=== PATIENT | male | born 1965 | race Caucasian/White ===

== ENCOUNTER 2020-03-13 14:54 | Emergency (ER) | payer OTHER, SELFPAY ==
[2020-03-13 14:58] VITALS: BP 144/90; PULSE 90; RESP 14; TEMP 36.9; O2SAT 99; BMI 27.8
[2020-03-13] MEDS: ALBUTEROL HFA PREPACK 1 BOX MISC (15:15)
--- NOTE | 2020-03-13 15:18 | ED_ITS ---
HPI - SOB/Dyspnea General Chief Complaint: Shortness of Breath/Dyspnea Stated Complaint: trouble breathing Time Seen by Provider: 03/13/20 15:14 Source: patient and family Mode of arrival: Ambulatory Limitations: no limitations History of Present Illness HPI Narrative: Patient is a 54-year-old male who presents with ongoing cough since about October or November he feels like it has progressively gotten worse and feels like today he cannot take a deep breath. He denies any fever he sometimes has some chest discomfort. Every time he tries to take a deep breath he starts coughing. He actually had a COVID-19 test 2 days ago they do not yet have the result. He denies any sore throat body aches fever or chills. He denies any orthopnea who is just worse with exertion. MD Complaint: shortness of breath, cough and pain with inspiration Related Data Allergies Allergy/AdvReac Type Severity Reaction Status Date / Time No Known Drug Allergies Allergy Verified 03/13/20 15:17 Review of Systems Review of Systems Narrative: GENERAL: Denies chills, fatigue, malaise, fever, sweats, travel HEENT: Denies sinus pain, ear pain, sore throat, difficulty swallowing, neck pain RESPIRATORY: Denies dyspnea, cough, wheezing, hemoptysis, sputum. CARDIOVASCULAR: Denies chest pain, palpitations, orthopnea, edema GASTROINTESTINAL: Denies nausea, vomiting, abdominal pain, diarrhea, constipation, melena. : Denies dysuria, frequency, incontinence, hematuria, urinary retention, flank pain. MUSCULOSKELETAL: Denies weakness, joint pain, or bony pain SKIN: No rash, no erythema, no pruritus NEUROLOGIC: Denies weakness, dizziness, headache, numbness, change in speech, confusion PSYCHIATRIC: No concerning psychosocial issues. 12 point review of systems is negative except for those stated above and HPI Patient History Medical History Patient denies medical problems (Acute) Social History Smoking Status: Former smoker Smoking Status: Former smoker alcohol intake frequency: 0-2 drinks per day Substance Use Type: does not use Exam Initial Vital Signs Initial Vital Signs: Vital Signs Temperature 98.4 F 03/13/20 14:58 Pulse Rate 90 03/13/20 14:58 Respiratory Rate 14 03/13/20 14:58 Blood Pressure 144/90 H 03/13/20 14:58 Pulse Oximetry 99 03/13/20 14:58 GENERAL: Well-appearing, well-nourished and in no acute distress. HEENT: Head atraumatic,EOMI, pupils reactive, face symmetric, moist mucous membranes CARDIOVASCULAR: Regular rate and rhythm without murmurs, rubs or gallops. RESPIRATORY: Breath sounds equal bilaterally, no wheezes rales or rhonchi. Speaks in full sentences without difficulty whenever he takes a deep breath he does have cough ABDOMEN: Soft, nontender. Normoactive bowel sounds all 4 quadrants. No guarding or rebound. EXTREMITIES: Normal range of motion, no clubbing or edema. Neurovascularly intact NEUROLOGICAL: Alert and oriented x4.Normal gait and speech. SKIN: Warm, dry, no laceration, no petechiae, no rashes or lesions. Scores HEART Score Heart Score history: Slightly Suspicious Heart Score EKG: Normal Heart Score Age: 45-64 years old Heart Score risk factors: No known risk factors Heart Score troponin: < or = to normal limit Heart Score Total: 1 Course Orders Ordered: ED Orders 03/13/20 14:58 EKG-12 Lead Routine 03/13/20 15:05 Complete Blood Count AUTO DIFF Stat Comprehensive Metabolic Panel Stat D Dimer Stat NT-proBNP (BNP-Adult 18+) Stat Procalcitonin Stat Troponin & CK Cardiac Panel Stat 03/13/20 15:17 Consult to Respiratory Therapy Evaluate & Treat XR chest 2V Stat Discontinued Medications Albuterol (Ventolin Hfa Prepack) 1 box MISC SEEINSTR ONE Stop: 03/13/20 15:12 Last Admin: 03/13/20 15:15 Dose: 1 box Documented by: BJ Vital Signs Vital signs: Vital Signs - 8 hr 03/13/20 14:58 03/13/20 15:21 03/13/20 15:33 Temperature 98.4 F Pulse Rate 90 86 85 Respiratory Rate 14 16 21 Blood Pressure 144/90 H Pulse Oximetry 99 96 94 03/13/20 16:00 03/13/20 16:36 Temperature Pulse Rate 94 H 78 Respiratory Rate 22 20 Blood Pressure 146/67 H Pulse Oximetry 93 97 MDM - SOB/Dyspnea Lab Data Attestation: I reviewed the patient's lab results. Result diagrams: 03/13/20 15:05 03/13/20 15:05 Labs: Lab Results 03/13/20 03/13/20 03/13/20 Range/Units 15:05 15:05 15:05 WBC 5.9 (4.5-11.0) X10^3/uL RBC 5.12 (4.5-5.9) X10^6/uL Hgb 15.9 (13.5-17.5) g/dL Hct 45.7 (41-53) % MCV 89.3 (80-100) fL MCH 31.0 (26-34) PG MCHC 34.8 (30-36) % RDW 13.3 (11.6-14.8) % Plt Count 164 (150-400) X10^3/uL Neut % (Auto) 59.6 (50-75) % Lymph % (Auto) 27.4 (25-40) % Cloud % (Auto) 9.9 (3-14) % Eos % (Auto) 2.1 (2-4) % Baso % (Auto) 1.0 (0-2) % Neut # (Auto) 3500 (0524-6721) /uL Lymph # (Auto) 1600 (4641-3489) /uL Cloud # (Auto) 600 (0-900) /uL Eos # (Auto) 100 (0-450) /uL Baso # (Auto) 100 (0-100) /uL D-Dimer < 200 (<230) ng/mL Sodium (137-145) mmol/L Potassium (3.4-5.1) mmol/L Chloride (98-107) mmol/L Carbon Dioxide (22-32) mmol/L BUN (9-20) mg/dL Creatinine (0.66-1.25) mg/dL Estimated GFR (>60) mL/min BUN/Creatinine Ratio (6-22) Glucose (70-100) mg/dL Calcium (8.4-10.2) mg/dL Total Bilirubin (0.2-1.3) mg/dL AST (17-59) IU/L ALT (<50) IU/L Alkaline Phosphatase (38-126) U/L Total Creatine Kinase (55-170) U/L CK-MB (CK-2) CK-MB (CK-2) Rel Index Troponin I (0.01-0.034) ng/mL NT-Pro-B Natriuret Pep 18 (<125) pg/mL Total Protein (6.3-8.2) g/dL Albumin (3.5-5.0) g/dL Globulin (1.7-4.1) g/dL Albumin/Globulin Ratio (1.0-2.8) Procalcitonin (<0.5) ng/mL 03/13/20 03/13/20 Range/Units 15:05 15:05 WBC (4.5-11.0) X10^3/uL RBC (4.5-5.9) X10^6/uL Hgb (13.5-17.5) g/dL Hct (41-53) % MCV (80-100) fL MCH (26-34) PG MCHC (30-36) % RDW (11.6-14.8) % Plt Count (150-400) X10^3/uL Neut % (Auto) (50-75) % Lymph % (Auto) (25-40) % Cloud % (Auto) (3-14) % Eos % (Auto) (2-4) % Baso % (Auto) (0-2) % Neut # (Auto) (7414-9689) /uL Lymph # (Auto) (0219-9185) /uL Cloud # (Auto) (0-900) /uL Eos # (Auto) (0-450) /uL Baso # (Auto) (0-100) /uL D-Dimer (<230) ng/mL Sodium 139 (137-145) mmol/L Potassium 4.6 (3.4-5.1) mmol/L Chloride 107 (98-107) mmol/L Carbon Dioxide 26 (22-32) mmol/L BUN 17 (9-20) mg/dL Creatinine 1.42 H (0.66-1.25) mg/dL Estimated GFR 51.8 L (>60) mL/min BUN/Creatinine Ratio 12.0 (6-22) Glucose 98 (70-100) mg/dL Calcium 9.1 (8.4-10.2) mg/dL Total Bilirubin 0.6 (0.2-1.3) mg/dL AST 46 (17-59) IU/L ALT 50 H (<50) IU/L Alkaline Phosphatase 61 (38-126) U/L Total Creatine Kinase 100 (55-170) U/L CK-MB (CK-2) TNP CK-MB (CK-2) Rel Index TNP Troponin I < 0.012 (0.01-0.034) ng/mL NT-Pro-B Natriuret Pep (<125) pg/mL Total Protein 7.3 (6.3-8.2) g/dL Albumin 4.4 (3.5-5.0) g/dL Globulin 2.9 (1.7-4.1) g/dL Albumin/Globulin Ratio 1.5 (1.0-2.8) Procalcitonin < 0.05 (<0.5) ng/mL Imaging Data Chest x-ray: Radiologist's Impression: PROCEDURE: XR CHEST 2V INDICATIONS: sob TECHNIQUE: 2 views of the chest were acquired. COMPARISON: None. FINDINGS: Surgical changes and devices: None. Lungs and pleura: Lungs are clear. No pleural effusions or pneumothorax. Mediastinum: Mediastinal contours are normal. Heart size is normal. Bones and chest wall: No suspicious bony abnormalities. Soft tissues appear unremarkable. IMPRESSION: No acute cardiopulmonary findings. Dictated by: Cande Christensen M.D. on 03/13/2020 at 15:06 Approved by: Cande Christensen M.D. on 03/13/2020 at 15:06 ECG Data Attestation: I personally reviewed and interpreted this ECG as follows: Prior ECG tracings: not available for review Interpretation: Normal sinus rhythm rate 75 p.r. interval 161 QRS [address] changes no T-wave inversions no priors to compare MDM Narrative Medical decision making narrative: Patient is has a COVID test is pending from outside facility. now at this time he is not hypoxic. He had mild improvement with albuterol. He overall does not appear septic. He has had chronic ongoing cough for a number of months. Symptoms correlate more with reactive airway disease. At this time recommend outpatient follow up. Discharge Plan Departure Patient Disposition: Home Clinical Impression: Mild reactive airways disease Qualifiers: Asthma persistence: unspecified Qualified Code(s): J45.909 - Unspecified asthma, uncomplicated Discharge Date/Time: 03/13/20 16:38 Instructions: DI for Reactive Airway Disease-Adult Activity Restrictions/Additional Instructions: *You have been diagnosed with reactive airway *What to do: At this time wait for your [place] id results self quarantine and see instructions below. Your kidney function should be monitored is noted to be slightly elevated *Continue to take medications as directed Albuterol inhaler with spacer 1-2 puffs every 4 hours only if needed for difficulty breathing *Follow up with your primary care provider in 2-3 days *Return to ER if you should have increasing shortness of breath chest pain [or] any new, worsening or concerning symptoms Referrals: Rommel Coleman MD [Primary Care Provider] -
[2020-03-13 15:21] VITALS: PULSE 86; RESP 16; O2SAT 96
[2020-03-13 15:31] LABS: Add Manual Diff / Slide Review NO; Basophils Absolute Auto 100 /uL (0-100); Eosinophils Absolute Auto 100 /uL (0-450); Eosinophils Percent Auto 2.1 % (2-4); Hematocrit 45.7 % (41-53); Hemoglobin 15.9 g/dL (13.5-17.5); Lymphocytes Absolute Auto 1600 /uL (1100-4500); Lymphocytes Percent Auto 27.4 % (25-40); Mean Corpuscular HGB Conc 34.8 % (30-36); Mean Corpuscular Volume 89.3 fL (80-100); Monocytes Absolute Auto 600 /uL (0-900); Monocytes Percent Auto 9.9 % (3-14); Neutrophils Absolute Auto 3500 /uL (1500-7000); Neutrophils Percent Auto 59.6 % (50-75); Platelet Count 164 X10^3/uL (150-400); Red Blood Cell Count 5.12 X10^6/uL (4.5-5.9); Red Cell Distribution Width 13.3 % (11.6-14.8); White Blood Cell Count 5.9 X10^3/uL (4.5-11.0)
[2020-03-13 15:33] VITALS: PULSE 85; RESP 21; O2SAT 94
[2020-03-13 15:44] LABS: Alanine Aminotransferase 50 IU/L (<50); Albumin 4.4 g/dL (3.5-5.0); Albumin Globulin Ratio 1.5 (1.0-2.8); Alkaline Phosphatase 61 U/L (38-126); Aspartate Aminotransferase 46 IU/L (17-59); Bilirubin Total 0.6 mg/dL (0.2-1.3); Blood Urea Nitrogen 17 mg/dL (9-20); Calcium 9.1 mg/dL (8.4-10.2); Carbon Dioxide 26 mmol/L (22-32); Chloride 107 mmol/L (98-107); Creatine Kinase 100 U/L (55-170); Estimated Glomerular Filt Rate 51.8 mL/min (>60); Globulin 2.9 g/dL (1.7-4.1); Glucose 98 mg/dL (70-100); HEMOLYSIS 20 (0-50); Potassium 4.6 mmol/L (3.4-5.1); Sodium 139 mmol/L (137-145); Total Protein 7.3 g/dL (6.3-8.2)
[2020-03-13 15:45] LABS: D Dimer < 200 ng/mL (<230)
[2020-03-13 15:53] LABS: NT-proBNP (BNP-Adult 18+) 18 pg/mL (<125)
[2020-03-13 15:55] LABS: Troponin I < 0.012 ng/mL (0.01-0.034)
[2020-03-13 16:00] VITALS: PULSE 94; RESP 22; O2SAT 93
[2020-03-13 16:17] LABS: Procalcitonin < 0.05 ng/mL (<0.5)
[2020-03-13 16:36] VITALS: BP 146/67; PULSE 78; RESP 20; O2SAT 97
== END 2020-03-13 16:38 | disposition home or self-care (01) ==
PROVIDERS: Emergency Provider Emergency Medicine; PCP General Practice
DX: J45.909 Unspecified asthma, uncomplicated (principal); R05 Cough
CPT/HCPCS: 36415; 71046; 80053; 82550; 83880; 84145; 84484; 85025; 85379; 93005; 94640; 99283; 99284

== ENCOUNTER → 2020-09-21 08:30 | Outpatient (CLI) | payer OTHER, SELFPAY ==
[2020-09-21 09:13] LABS: COVID19 -Nasal RAPID Negative (Negative)
== END ==
PROVIDERS: PCP Family Medicine; Referring Provider Internal Medicine; Visit Provider Internal Medicine
DX: Z20.822 Contact with and (suspected) exposure to COVID-19 (principal)
CPT/HCPCS: 87635; C9803

== ENCOUNTER → 2020-09-22 10:44 | Outpatient (CLI) | payer OTHER, SELFPAY ==
--- NOTE | 2020-10-05 10:04 | PM.PFT.1 ---
Pulmonary Function Test Referral & Results Date Patient Seen: 09/22/20 Requesting provider: Juan Jose Hunt Results: The spirometry demonstrates an FVC of 5.46 L which is 107% of predicted. The FEV1 was measured at 4.12 L which is 106% of predicted. The FEV1/FVC ratio was 75 which is 99% of predicted. Following the administration of bronchodilator there was no appreciable change to above normal numbers. Interpretation: Patient's forced spirometry was entirely normal
== END ==
PROVIDERS: PCP Family Medicine; Referring Provider Family Medicine; Visit Provider Family Medicine
DX: J45.909 Unspecified asthma, uncomplicated (principal); J30.9 Allergic rhinitis, unspecified
CPT/HCPCS: 94060

== ENCOUNTER → 2022-12-12 11:57 | Outpatient (CLI) | payer OTHER, SELFPAY ==
--- NOTE | 2022-12-12 11:59 | DI.RAD.S_ITS ---
PROCEDURE: XR CHEST 2V INDICATIONS: Cough TECHNIQUE: 2 views of the chest were acquired. COMPARISON: [facility], CR, XR CHEST 2V, 03/13/2020, 15:43. FINDINGS: Surgical changes and devices: None. Lungs and pleura: Increased bronchovascular markings in bilateral hilar region are seen with mild bronchial wall thickening. No definite focal infiltrate. No pleural effusions or pneumothorax. Mediastinum: Mediastinal contours are normal. Heart size is normal. Bones and chest wall: No suspicious bony abnormalities. Soft tissues appear unremarkable. IMPRESSION: Suggestion of mild reactive airway disease. No definite focal infiltrate. No pleural effusion or pneumothorax. Dictated by: Rj Garrett M.D. on 12/12/2022 at 14:31 Approved by: Rj Garrett M.D. on 12/12/2022 at 14:41
[2022-12-12 14:03] LABS: Monotest Negative (Negative)
[2022-12-12 14:30] LABS: COVID-19 CEPHEID 4-PLEX PCR Negative (Negative); Influenza A - CEPHEID Flu A NEGATIVE (NEGATIVE); Influenza B - CEPHEID Flu B NEGATIVE (NEGATIVE); Respiratory Syncytial Virus Negative (Negative)
== END ==
PROVIDERS: PCP Family Medicine; Referring Provider Nurse Practitioner Family; Visit Provider Nurse Practitioner Family
DX: R53.83 Other fatigue (principal); R05.9 Cough, unspecified; Z20.822 Contact with and (suspected) exposure to COVID-19
CPT/HCPCS: 0241U; 36415; 71046; 86318; 87070

== ENCOUNTER → 2024-05-21 13:26 | Outpatient (CLI) | payer OTHER, SELFPAY ==
--- NOTE | 2024-05-21 13:28 | DI.US.S_ITS ---
PROCEDURE: US EXTREMITY NONVASC UPPER LT INDICATIONS: localized swelling, mass and lump TECHNIQUE: Real-time scanning was performed of the left axilla, with image documentation. COMPARISON: None. FINDINGS: Focused ultrasound examination of left axilla at patient's reported area of palpable lump shows a 4.5 x 2.5 x 4.5 cm solid-appearing structure within subcutaneous soft tissue and is isoechoic to adjacent subcutaneous fat. No internal vascularity is seen. IMPRESSION: Finding likely represent 4.5 x 2.5 x 4.5 cm lipoma in left axilla. Clinical correlation and follow-up is recommended. Dictated by: Rj Garrett M.D. on 05/21/2024 at 14:07 Approved by: Rj Garrett M.D. on 05/21/2024 at 14:17
== END ==
PROVIDERS: PCP Nurse Practitioner Family; Referring Provider Nurse Practitioner Family; Visit Provider Nurse Practitioner Family
DX: R22.32 Localized swelling, mass and lump, left upper limb (principal)
CPT/HCPCS: 76882

== ENCOUNTER 2024-07-28 08:09 | Day surgery (SDC) | payer OTHER, SELFPAY ==
[2024-07-20 09:32] VITALS: BMI 29.1
--- NOTE | 2024-07-28 | PATH_ITS ---
[facility] Accession Number: [id number] No. of containers..01 Tissue . 01 Material submitted: . sinus, accessory - LEFT AXILLARY CONTENTS . 01 Diagnosis: LEFT AXILLARY CONTENTS, EXCISIONAL BIOPSIES: Fragments of mature adipose tissue, consistent with benign lipomas. Negative for atypia or malignancy. MRV 07/30/2024 1514 Local . 01 Electronically signed: . Trudy Sandoval MD, Pathologist NPI- [id number] . 01 Gross description: . Received in formalin with two patient identifiers and axillary contents, are two yellow lobulated soft tissue fragments. The first (2.2 x 1.6 x 1.5 cm) is inked blue while the second (1.5 x 1.3 x 0.8 cm) is inked green. Sectioning reveals a yellow, soft, unremarkable cut surface. Machine Ii Coremaker sections are submitted in A1-A2 (entire green fragment submitted). ([id number]) /MRV 07/29/2024 1330 Local . 01 Pathologist provided ICD-10: D17.9 . 01 CPT . 484769 Specimen Comment: A courtesy copy of this report has been sent to [phone] Performed at: [address] [facility] [address], [place], [place] [id number] MD Elvin Wagner MD Phone: [phone]
[2024-07-28] MEDS: LACTATED RINGERS 1,000 ML 100 ML IV (08:30)
[2024-07-28 08:44] VITALS: BP 116/78; RESP 72; TEMP 36.4; O2SAT 16; BMI 29.1
--- NOTE | 2024-07-28 08:52 | PM.PREOP ---
Pre-operative Note COVID-19 COVID-19 status: Not tested Interval Note History & Physical reviewed/Exam performed by Physician: Yes Changes to H&P: No ASA Class (for procedural sedation): II
--- NOTE | 2024-07-28 09:47 | SUR.OPER ---
Supine on padded OR bed, head on pillow, arms secured on padded arm boards at <90 degrees abduction, legs uncrossed, safety belt at thigh, tape over blanket over lower legs.
[2024-07-28] MEDS: BUPIVACAINE 0.5% W/ EPI (PF) 30 ML VIAL INJ (09:56)
--- NOTE | 2024-07-28 09:56 | P.OP_ITS ---
Operative Date/Time/Diagnoses Date of procedure: 07/28/24 Time of procedure: 09:56 Pre-op diagnosis: Left axillary fullness Post-op diagnosis: same Procedure & Clinicians Procedure: Left axillary excisional biopsy Same procedure as scheduled: Yes Surgeon: Blayne Su Creative Technologist: Andrew Santillan Anesthesia Type: General Operative Notes Procedure in detail: The patient is a 59-year-old man who presented with left axillary fullness, a sensation of a mass in the left axilla and an ultrasound suggesting lipoma in the area. He was consented for an excisional biopsy in the operating room. Patient was brought to the operating room and placed on the table in the supine position. Anesthesia was induced. His left arm was abducted on an armboard. The left axilla was prepped and draped in the usual fashion and a time-out was performed. Local was injected over the area of axillary fullness. A 7 cm transverse incision was created. We dissected down into the axillary contents. There was some thickened subcutaneous adipose tissue but no discrete mass. A finger was inserted in his to the axilla and no palpable lymph nodes or other abnormalities were identified. We did biopsy some of the thickened subcutaneous adipose tissue. We then used cautery for hemostasis. We injected additional local into the axilla. We then closed the skin incision in layers using multiple interrupted 3-0 Vicryl dermal sutures followed by a running 4-0 Monocryl subcuticular stitch. EBL: 5 mL graft Specimen: Left axillary contents Post-operative Condition: stable Disposition: PACU
[2024-07-28 10:05] VITALS: BP 106/72; PULSE 65; RESP 14; TEMP 36.5; O2SAT 95
[2024-07-28 10:10] VITALS: BP 118/81; PULSE 67; RESP 12; O2SAT 94
[2024-07-28 10:15] VITALS: BP 126/92; PULSE 70; RESP 12; TEMP 36.6; O2SAT 94
[2024-07-28 10:18] VITALS: BP 116/79; PULSE 68; RESP 16; O2SAT 99
== END 2024-07-28 10:40 | disposition home or self-care (01) ==
PROVIDERS: PCP Nurse Practitioner Family; Referring Provider Surgery; Visit Provider Surgery
PROC: (CPT 21550; principal; 2024-07-28 09:45)
DX: D17.22 Benign lipomatous neoplasm of skin and subcutaneous tissue of left arm (principal)
CPT/HCPCS: 21550; J1100; J2405; J2704; J3010

== ENCOUNTER → 2025-02-10 17:43 | Outpatient (CLI) | payer OTHER, SELFPAY ==
[2025-02-10 18:31] LABS: Influenza A - CEPHEID Flu A NEGATIVE (NEGATIVE); Influenza B - CEPHEID Flu B NEGATIVE (NEGATIVE)
[2025-02-10 18:33] LABS: COVID-19 CEPHEID 4-PLEX PCR Negative (Negative)
== END ==
PROVIDERS: PCP Nurse Practitioner Family; Visit Provider Physician Assistant
DX: R05.9 Cough, unspecified (principal)
CPT/HCPCS: 87637

== ENCOUNTER → 2025-02-10 18:26 | Outpatient (CLI) | payer OTHER, SELFPAY ==
--- NOTE | 2025-02-10 | DI.RAD.S_ITS ---
PROCEDURE: XR CHEST 2V INDICATIONS: cough TECHNIQUE: 2 views of the chest were acquired. COMPARISON: [facility], CR, XR CHEST 2V, 12/12/2022, 12:08. FINDINGS: Heart, mediastinum and pulmonary vascular: Heart is normal in size and configuration. Probable small hiatal hernia. Mediastinum is otherwise normal Pulmonary vascular is normal. Lungs: Clear Pleural spaces: Normal-no effusions or pneumothorax. Bones and soft tissues: Normal IMPRESSION: No acute cardiopulmonary disease. Probable small hiatal hernia. Dictated by: Teofilo Toth M.D. on 02/11/2025 at 13:00 Approved by: Teofilo Toth M.D. on 02/11/2025 at 13:01
== END ==
LOC: DI 18:27
PROVIDERS: PCP Nurse Practitioner Family; Referring Provider Physician Assistant; Visit Provider Physician Assistant
DX: R05.9 Cough, unspecified (principal)
CPT/HCPCS: 71046; 87637

== ENCOUNTER → 2025-03-29 09:48 | Outpatient (CLI) | payer OTHER, SELFPAY ==
--- NOTE | 2025-03-29 09:49 | DI.RAD.S_ITS ---
PROCEDURE: XR KNEE RT 3V INDICATIONS: Right medial knee pain TECHNIQUE: 3 views of the knee were acquired. COMPARISON: None. FINDINGS: Bones: There are no osseous abnormalities. Joints: The tibialfemoral and patellofemoral joints show mild degeneration. No effusions. Soft tissues: Normal IMPRESSION: Mild degeneration Dictated by: Teofilo Toth M.D. on 03/30/2025 at 11:52 Approved by: Teofilo Toth M.D. on 03/30/2025 at 11:52
== END ==
PROVIDERS: Referring Provider Physician Assistant; Visit Provider Physician Assistant
DX: M17.11 Unilateral primary osteoarthritis, right knee (principal); M25.561 Pain in right knee
CPT/HCPCS: 73562

== ENCOUNTER 2025-05-05 10:27 | Day surgery (SDC) | payer OTHER, SELFPAY ==
[2025-05-05 10:58] VITALS: BP 124/86; PULSE 72; RESP 16; TEMP 36.4; O2SAT 96
--- NOTE | 2025-05-05 11:04 | P.HP_ITS ---
History of Present Illness History of Present Illness Date Patient Seen: 05/05/25 Chief complaint: Screening Colonoscopy Narrative: Follow-up -10 year colonoscopy [facility] Medical History (Updated 03/29/25 @ 16:05 by Evelyn Pearson PA-C) Patient denies medical problems Surgical History (Updated 07/20/24 @ 09:39 by Susu Alcocer RN) History of Praveen fundoplication (09/12/17) Social History household members: spouse alcohol intake: current Meds Home Medications and Allergies Home Medications ?Medication ?Instructions ?Recorded ?Confirmed ?Type sildenafil 50 mg tablet 100 mg PO 07/06/24 03/29/25 History fluorouracil 5 % topical cream 1 applic topical BID 03/29/25 History Allergies Allergy/AdvReac Type Severity Reaction Status Date / Time No Known Drug Allergies Allergy Verified 05/05/25 10:56 Exam Narrative Exam Narrative: Oropharynx free of lesions Cardiac exam reveals no S3 or murmur Assessment & Plan Assessment & Plan narrative: Follow-up 10 year screening colonoscopy. Risks, benefits, alternatives have been explained. Time-Based Coding :: [TOTAL MINUTES] spent with patient and on the chart (including review of chart, obtaining history, exam, reviewing outside data, placing orders, documenting exam and treatment plan, and counseling patient) on [DATE]. 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
--- NOTE | 2025-05-05 11:08 | PM.OP.COLON ---
Operative Date/Time/Diagnoses Date of procedure: 05/05/25 Time of procedure: 11:54 Pre-op diagnosis: See indication and findings Post-op diagnosis: same Procedure & Clinicians Study performed: Colonoscopy Same procedure(s) as scheduled: Yes Indications: Follow-up 10 year screening Surgeon: José Miguel Angel Anesthesia Type: Other Procedure Notes Procedure in detail: After informed consent was obtained the patient was placed in left lateral decubitus position. The video colonoscope was introduced the rectum slowly advanced cecum. Preparation was good. On slow withdrawal mucosa was carefully examined. The scope was removed. The patient tolerated procedure well. Blood loss none Complications none Sedation mac Findings 1. Scattered diverticulosis in the sigmoid colon 2. Otherwise negative colonoscopy to cecum Patient have follow-up colonoscopy in 10 years
[2025-05-05] MEDS: LACTATED RINGERS 1,000 ML 84 ML IV (11:15)
[2025-05-05 11:58] VITALS: BP 119/73; PULSE 73; RESP 17; TEMP 36.5; O2SAT 96
[2025-05-05 12:03] VITALS: BP 122/69; PULSE 67; RESP 15; TEMP 36.4; O2SAT 96
[2025-05-05 12:11] VITALS: BP 119/71; PULSE 69; RESP 15; TEMP 36.4; O2SAT 99
== END 2025-05-05 12:34 | disposition home or self-care (01) ==
PROVIDERS: Referring Provider Internal Medicine Gastroenterology; Visit Provider Internal Medicine Gastroenterology
PROC: 0DJD8ZZ Inspection of Lower Intestinal Tract, Via Natural or Artificial Opening Endoscopic (ICD-10-PCS; CPT 45378; principal; 2025-05-05 11:30)
DX: Z12.11 Encounter for screening for malignant neoplasm of colon (principal); K57.30 Diverticulosis of large intestine without perforation or abscess without bleeding
CPT/HCPCS: 45378; J2704; J7120